=== PATIENT | male | born 1995 | race Two or more races ===

== ENCOUNTER 2023-11-07 14:56 | Emergency (ER) | payer OTHER ==
[~2023-11-07] VITALS: Ht 180.3 cm; Wt 80.3 kg
[2023-11-07 16:05] VITALS: BP 147/87; PULSE 93; RESP 18; TEMP 99; O2SAT 97
[2023-11-07] MEDS ORDERED: PROM1SOL4 PO (16:19)
[2023-11-07] MEDS ORDERED: PRED20TA2 PO (16:19)
[2023-11-07] MEDS ORDERED: AMOX875T3 PO (16:19)
== END 2023-11-07 16:24 | disposition home or self-care (01) ==
LOC: ER 14:56
DX: J01.90 Acute sinusitis, unspecified (principal); J20.9 Acute bronchitis, unspecified
CPT/HCPCS: 71046